=== PATIENT | male | born 1980 | race Two or more races ===

== ENCOUNTER 2022-08-06 12:03 | Outpatient (REF) | payer MEDICAID, OTHER, SELFPAY ==
[2022-08-09 00:08] LABS: TS Negative Control Passed; TS Panel A 0; TS Panel B 0; TS Positive Control Passed; TSpotTB Negative (Negative)
== END 2022-08-06 12:04 | disposition home or self-care (01) ==
LOC: HO.HMGCLDS 12:03
PROVIDERS: Visit Provider Internal Medicine
DX: Z11.1 Encounter for screening for respiratory tuberculosis (principal)
CPT/HCPCS: 86481